=== PATIENT | male | born 1990 | race Asian ===

== ENCOUNTER 2018-10-16 16:05 | Emergency (ER) | payer MEDICAID ==
[~2018-10-16] VITALS: Ht 162.6 cm; Wt 62.7 kg
[2018-10-16 17:41] VITALS: BP 125/71
== END 2018-10-16 19:31 | disposition home or self-care (01) ==
LOC: EMS 16:05
DX: M21.42 Flat foot [pes planus] (acquired), left foot (principal); M21.41 Flat foot [pes planus] (acquired), right foot

== ENCOUNTER 2020-11-29 12:17 | Emergency (ER) | payer MEDICAID ==
[~2020-11-29] VITALS: Ht 170.2 cm; Wt 65.0 kg
[2020-11-29 12:57] VITALS: BP 136/70
== END 2020-11-29 13:45 | disposition home or self-care (01) ==
LOC: EMS 12:17
DX: B35.6 Tinea cruris (principal); Z88.1 Allergy status to other antibiotic agents
CPT/HCPCS: 99281; 99283

== ENCOUNTER 2021-02-22 12:48 | Emergency (ER) | payer MEDICAID ==
[~2021-02-22] VITALS: Ht 165.1 cm; Wt 54.5 kg
[2021-02-22 12:54] VITALS: BP 131/86
[2021-02-22 15:26] LABS: GLUCOSE,POINT OF CARE 95 MG/DL (70-110)
== END 2021-02-22 16:08 | disposition home or self-care (01) ==
LOC: EMS 12:48
DX: B35.6 Tinea cruris (principal); Z88.1 Allergy status to other antibiotic agents
CPT/HCPCS: 82962; 99283

== ENCOUNTER 2021-05-29 10:54 | Emergency (ER) | payer MEDICAID ==
[~2021-05-29] VITALS: Ht 162.6 cm; Wt 55.9 kg
[2021-05-29 12:30] VITALS: BP 118/71
== END 2021-05-29 13:02 | disposition home or self-care (01) ==
LOC: EMS 10:56
DX: M25.562 Pain in left knee (principal); Z88.1 Allergy status to other antibiotic agents
CPT/HCPCS: 99283

== ENCOUNTER 2022-10-10 10:58 | Emergency (ER) | payer MEDICAID ==
[~2022-10-10] VITALS: Ht 167.6 cm; Wt 54.5 kg
[2022-10-10 12:21] LABS: COVID AG,FIA SOURCE NASOPHARYNGEAL
[2022-10-10] MEDS ORDERED: BACITRACIN 0.9 GM PACKET OINTMENT TP ONE (13:15)
[2022-10-10] MEDS ORDERED: ACETAMINOPHEN 325 MG TABLET PO ONE (13:15)
[2022-10-10 14:04] VITALS: BP 129/82
== END 2022-10-10 14:12 | disposition home or self-care (01) ==
LOC: EMS 11:14
DX: R45.1 Restlessness and agitation (principal); Z98.890 Other specified postprocedural states; Z88.2 Allergy status to sulfonamides; Z20.822 Contact with and (suspected) exposure to COVID-19
CPT/HCPCS: 99284

== ENCOUNTER 2023-05-03 14:31 | Emergency (ER) | payer MEDICAID ==
[~2023-05-03] VITALS: Ht 160 cm; Wt 48.6 kg
[2023-05-03 14:38] VITALS: TEMP 97.9
[2023-05-03] MEDS ORDERED: ESCI20TA37 PO (14:43)
[2023-05-03 17:10] VITALS: BP 134/81; PULSE 89; RESP 17
== END 2023-05-03 18:15 | disposition home or self-care (01) ==
LOC: EMS 14:33
DX: S60.221A Contusion of right hand, initial encounter (principal); F41.9 Anxiety disorder, unspecified; F32.A Depression, unspecified; Z88.2 Allergy status to sulfonamides; X58.XXXA Exposure to other specified factors, initial encounter; Y93.89 Activity, other specified; Y92.89 Other specified places as the place of occurrence of the external cause; Y99.8 Other external cause status
CPT/HCPCS: 99283

== ENCOUNTER 2024-04-30 15:44 | Emergency (ER) | payer MEDICAID ==
[~2024-04-30] VITALS: Ht 165.1 cm; Wt 59.1 kg
[~2024-04-30 15:44] MED LIST: ESCI20TA37 PO
[2024-04-30 15:49] VITALS: BP 122/75; PULSE 68; RESP 18; TEMP 98.7; O2SAT 99
[2024-04-30] MEDS ORDERED: ESCI-8 PO (16:19)
[2024-04-30] MEDS ORDERED: HYDR-4808 PO (16:19)
[2024-04-30] MEDS ORDERED: RISA150P SQ (16:19)
[2024-04-30] MEDS: IBUPROFEN 600 MG TABLET PO ONE (16:20)
[2024-04-30] MEDS: ACETAMINOPHEN 325 MG TABLET PO ONE (16:21)
== END 2024-04-30 17:29 | disposition home or self-care (01) ==
LOC: EMS 15:44
DX: S62.306A Unspecified fracture of fifth metacarpal bone, right hand, initial encounter for closed fracture (principal); F41.9 Anxiety disorder, unspecified; F32.A Depression, unspecified; Z90.79 Acquired absence of other genital organ(s); Z88.2 Allergy status to sulfonamides; Z98.890 Other specified postprocedural states; X50.9XXA Other and unspecified overexertion or strenuous movements or postures, initial encounter; Y93.89 Activity, other specified; Y92.89 Other specified places as the place of occurrence of the external cause; Y99.8 Other external cause status
CPT/HCPCS: 99284; 73110-TC; 73130-TC; Z7502; Z7610